=== PATIENT | male | born 1990 | race Hispanic/Latino ===

== ENCOUNTER 2017-12-13 00:15 | Emergency (ER) | payer OTHER ==
[2017-12-13] MEDS: KETOROLAC 60 MG/2 ML VIAL (J1885) IM (06:30)
== END 2017-12-13 07:35 | disposition home or self-care (01) ==
LOC: M ED 00:15
DX: J32.9 Chronic sinusitis, unspecified (principal)
CPT/HCPCS: J1885

== ENCOUNTER → 2018-01-02 | Outpatient (CLI) | payer OTHER | LOC: M RAD 07:12 | DX: R31.9 Hematuria, unspecified (principal); R30.0 Dysuria | CPT/HCPCS: 74176 ==

== ENCOUNTER 2018-01-27 14:21 | Emergency (ER) | payer OTHER ==
[2018-01-27] MEDS: diazePAM 5 MG TAB PO (15:09)
[2018-01-27] MEDS: KETOROLAC 60 MG/2 ML VIAL (J1885) IM (15:10)
== END 2018-01-27 21:01 | disposition home or self-care (01) ==
LOC: M ED 14:21
DX: M54.5 Low back pain (principal)
CPT/HCPCS: J1885

== ENCOUNTER 2018-01-31 11:24 | Emergency (ER) | payer OTHER | END 2018-01-31 15:51 | disposition home or self-care (01) | LOC: M ED 11:24 | DX: M25.552 Pain in left hip (principal) | CPT/HCPCS: 73502 ==